=== PATIENT | female | born 1985 | race Caucasian/White ===

== ENCOUNTER → 2019-09-17 | Outpatient (CLI) | payer OTHER ==
[2014-03-13 01:15] VITALS: BP 95/51
--- NOTE | 2019-09-17 19:31 | RAD ---
EXAMINATION: BREAST BILATERAL, MAMMO TRACY DIAG BILAT HISTORY: The referring doctor noted a palpable abnormality left upper-outer breast COMPARISON/CORRELATION: None. This is a baseline. FINDINGS: Full-field digital diagnostic mammography was performed bilaterally. MLO and CC projections bilaterally were provided. CAD was utilized. The breasts are extremely dense, which lowers the sensitivity of mammography. BB was placed in the left upper outer breast. No mass or distortion identified at the site. Minimal benign calcification is seen left subareolar region. A small mass is present involving the left breast at the 9:00 region approximately 3 cm from the nipple. Bilateral limited breast ultrasound exams were performed. At the right breast 8:00 region 4 cm from the nipple, there is a 0.8 cm x 0.6 cm followed by 0.8 cm complicated cyst. At the left breast 2:00 region where the BB was placed, there is a 0.22 cm x 0.38 cm x 0.2 cm tall well circumscribed structure which may represent a complicated cyst or fibroadenoma. IMPRESSION: BI-RADS Category: 3: Probably Benign. Six-month right unilateral diagnostic mammographic follow-up is recommended. Bilateral ultrasound follow-up in 6 months is recommended. Clinical management of the reported palpable abnormality is recommended. Patient information is entered into reminder system with a target due date for the next screening mammogram. Mammography is the most sensitive method for finding small breast cancers, but it does not detect them all and is not a substitute for careful clinical examination. A negative mammogram does not negate a clinically suspicious finding and should not result in delay in biopsying a clinically suspicious abnormality. "Our facility is accredited by the [employer] Mammography [employer]." Electronically signed by: Derrick Green MD (09/17/2019 7:28 PM) [facility]
== END | disposition home or self-care (01) ==
LOC: MAMMO 14:09
PROVIDERS: ATTEND Nurse Practitioner Family
DX: N63.22 Unspecified lump in the left breast, upper inner quadrant (principal); R92.1 Mammographic calcification found on diagnostic imaging of breast; N60.02 Solitary cyst of left breast
CPT/HCPCS: 76641; 77066; G0279; 77062

== ENCOUNTER → 2020-05-20 | Outpatient (CLI) | payer OTHER ==
[2014-03-13 01:15] VITALS: BP 95/51
--- NOTE | 2020-05-20 14:28 | RAD ---
DATE: 05/20/2020 1:32 PM EXAM: MAMMO TRACY DIAG RT, BREAST BILATERAL HISTORY: Short-term follow-up probably benign findings in the right and left breasts. Mammographic follow-up recommended for the right breast and ultrasound follow-up recommended for both breasts. At this visit, patient with ports localized tenderness in the upper outer right breast. No palpable lumps. COMPARISON: Bilateral mammogram and breast ultrasound of 09/17/2019 CC and MLO views of the right breast were performed. Breast tomosynthesis was performed in CC and MLO projections.This study was interpreted with the benefit of Computerized Aided Detection (CAD). . Targeted ultrasound of the bilateral breasts was then performed FINDINGS: Right mammogram and breast ultrasound: Breast Density: HETERO The breast parenchyma Is heterogeneously dense, which could reduce sensitivity of mammography. Breast parenchyma level C Nodular parenchymal pattern compatible with benign cystic change. No discrete mammographic mass correlating with the area of localized breast tenderness. Targeted ultrasound of the right breast showed multiple sonographically benign cysts, largest measuring 9 mm at the 8:00 position 4 cm from the nipple. Although this is slightly larger than before, the quinteros are more sharply circumscribed in the lesion is anechoic with posterior acoustic enhancement, all benign features. No suspicious sonographic findings. Left breast ultrasound: Small, sonographically benign cysts including a 3 mm complicated cyst at the 2:00 position 5 cm from the nipple. No suspicious findings on targeted ultrasound of the left breast.. IMPRESSION: Benign findings on bilateral breast ultrasound and right diagnostic mammogram. BI-RADS CATEGORY: 2 BENIGN FINDING(S) RECOMMENDED FOLLOW-UP: 12M 12 MONTH FOLLOW-UP recommend clinical management of any persistent symptoms and in the absence of any clinically suspicious findings, age and risk appropriate routine screening is recommended, starting at age 40 in average risk women. PQRS compliance statement: Patient information was entered into a reminder system with a target due date for the next mammogram. Mammography is a sensitive method for finding small breast cancers, but it does not detect them all and is not a substitute for careful clinical examination. A negative mammogram does not negate a clinically suspicious finding and should not result in delay in biopsying a clinically suspicious abnormality. "Our facility is accredited by the [employer] Mammography Program."
== END ==
LOC: MAMMO 12:56
PROVIDERS: ATTEND Nurse Practitioner Family
DX: N60.02 Solitary cyst of left breast (principal); N60.01 Solitary cyst of right breast; N63.0 Unspecified lump in unspecified breast
CPT/HCPCS: 76641; 77065; G0279; 77061